=== PATIENT | female | born 1985 | race Caucasian/White ===

== ENCOUNTER 2024-12-12 00:17 | Emergency (ER) | payer MEDICAID ==
[~2024-12-12] VITALS: Ht 165.1 cm; Wt 87.0 kg
[2024-12-12 00:39] VITALS: O2SAT 98
[2024-12-12 02:10] LABS: CHLORIDE 108 mEq/L (98-107); POTASSIUM 2.9 mEq/L (3.5-5.1); SODIUM 143 mEq/L (136-145)
[2024-12-12 02:11] LABS: CARBON DIOXIDE 22 mEq/L (21-32)
[2024-12-12 02:12] LABS: CALCIUM 7.5 mg/dL (8.7-10.4)
[2024-12-12 02:16] LABS: CREATININE 0.6 mg/dL (0.6-1.0); GLUCOSE 114 mg/dL (70-105); HCG SCREEN NEGATIVE; UREA NITROGEN BLOOD 9 mg/dL (9-23)
[2024-12-12 02:17] LABS: ETHANOL BLOOD 177 mg/dL (<10)
[2024-12-12 02:19] LABS: BASOPHILS % 0.5 % (0.0-2.0); EOSINOPHILS % 0.1 % (0.0-5.0); HEMATOCRIT. 40.6 % (36.0-48.0); HEMOGLOBIN. 13.4 g/dL (12.0-16.0); LYMPHOCYTES % 11.3 % (20.0-50.0); MEAN CORPUSCULAR HEMOGLOBIN 29.4 pg (28.0-32.0); MEAN CORPUSCULAR VOLUME 89.3 fL (81.0-99.0); MEAN PLATELET VOLUME 9.7 fl (7.4-10.4); MONOCYTES % 2.1 % (2.0-8.0); PLATELET 220 x1000/uL (130-400); RED BLOOD CELL COUNT 4.54 mill/uL (4.2-5.4); RED CELL DISTRIBUTION WIDTH 15.2 % (11.6-14.6)
[2024-12-12] MEDS ORDERED: POTA-204 MT (02:43)
[2024-12-12] MEDS ORDERED: KCL 20MEQ/100ML PREMIX 100 ML IV ONE (02:45)
[2024-12-12] MEDS: POTASSIUM CHLORIDE 20MEQ/PACKET PO ONE (02:46)
[2024-12-12 03:00] VITALS: BP 104/68; PULSE 60; RESP 16; O2SAT 98
== END 2024-12-12 03:00 | disposition home or self-care (01) ==
LOC: ER 00:17
DX: F10.129 Alcohol abuse with intoxication, unspecified (principal); R11.2 Nausea with vomiting, unspecified; E87.6 Hypokalemia; Z79.899 Other long term (current) drug therapy; Y90.6 Blood alcohol level of 120-199 mg/100 ml
CPT/HCPCS: 36415; 80048; 80320; 84703; 85025; 99283; G0480